=== PATIENT | male | born 1965 | race Two or more races ===

== ENCOUNTER → 2017-01-02 | Outpatient (CLI) | payer BC ==
--- NOTE | 2017-01-02 14:34 | KCIC ---
PA and lateral chest radiograph. History: Smoker, chronic cough. Comparison: None. Findings: Cardiomediastinal silhouette is within normal limits for size. Bilateral lung garvey appear clear without evidence of infiltrate, effusion, or pneumothorax. Impression: 1. No acute cardiopulmonary process. Electronically signed by: Amor Valdovinos MD (01/02/2017 2:28 PM) [place] [id number]
== END | disposition home or self-care (01) ==
LOC: KCIC 13:28
PROVIDERS: ATTEND Family Medicine
DX: R05 Cough (principal); F17.200 Nicotine dependence, unspecified, uncomplicated
CPT/HCPCS: 71020